=== PATIENT | male | born 1985 | race Caucasian/White ===

== ENCOUNTER 2019-01-07 17:32 | Emergency (ER) | payer OTHER ==
[~2019-01-07] VITALS: Ht 172.7 cm; Wt 97.5 kg
[2019-01-07 17:42] VITALS: BP_SYST 146
--- NOTE | 2019-01-07 19:09 | NUR ---
Pt c/o swelling of his penis and dysuria. Pain on urination due to fine cracks of the foreskin when he urinates. Reported onset of symptoms for approximately 3 days. Claimed happened in the past which spontaneously resolved. Reported this time around worsened there is some cracking of skin he reported that he is trying to stretch the skin so he feels better. He denied any change in his stream or inability to urinate. Denied any fevers body aches chills no history of back pain, flank pain no history of gross hematuria. Patient reported monogamous no risky sexual behavior no ulcerations.
--- NOTE | 2019-01-07 19:10 | NUR ---
Art DARNELL at examining patient at triage room with myself present.
[2019-01-07 19:25] LABS: CLARITY/URINE HAZY (CLEAR); COLOR,URINE YELLOW (YELLOW); GLUCOSE,URINE 3+ (NEGATIVE); PROTEIN URINE 2+ (NEGATIVE)
[2019-01-07 19:26] LABS: BILIRUBIN,URINE NEGATIVE (NEGATIVE); BLOOD, URINE 2+ (NEGATIVE); KETONES,URINE NEGATIVE (NEGATIVE); LEUKOCYTE ESTERASE ,URINE NEGATIVE (NEGATIVE); NITRITE, URINE NEGATIVE (NEGATIVE); UROBILINOGEN,URINE 0.2 (0.2-1.0)
[2019-01-07 19:44] LABS: BACTERIA,URINE MODERATE /HPF (None Seen); COARSE GRANULAR CASTS,URINE 0-10 /LPF (None Seen); FINE GRANULAR CASTS,URINE 0-10 /LPF (None Seen); MUCUS,URINE 2+ /LPF (None Seen); RBC,URINE 20-50 /HPF (0-3); WBC,URINE 20-50 /HPF (0-3)
[2019-01-07 19:45] LABS: URINE AMORPHOUS URATE 2+ /HPF (None Seen); YEAST,URINE Few /HPF (None Seen)
--- NOTE | 2019-01-07 20:05 | NUR ---
Patient given written and verbal discharge instructions and verbalizes understanding. ER MD discussed with patient the results and treatment provided. Patient in stable condition. ID arm band removed. Rx of Betamethasone Dipropriate, Ibuprofen 600 mg tab and [place] given. Patient educated on pain management and to follow up with PMD. Opportunity for questions provided and answered.
[2019-01-10 05:07] LABS: CHLAMYDIA TRACHOMATIS NAA Negative (Negative); NEISSERIA GONORRHOEAE NAA Negative (Negative)
== END 2019-01-07 20:05 | disposition home or self-care (01) ==
LOC: SED 17:32
DX: N47.1 Phimosis (principal)
CPT/HCPCS: 81000-TC; 82962; 87086; 87491; 87591; 99283